=== PATIENT | male | born 2000 | race Caucasian/White ===

== ENCOUNTER 2018-05-08 17:02 | Emergency (ER) | payer BC ==
[2018-05-08] MEDS ORDERED: LORazepam 2 MG/ML INJ NASAL ONE (17:16)
--- NOTE | 2018-05-08 17:20 | EDPHY ---
H & P Time Seen by Provider: 05/08/18 17:06 HPI/ROS: CHIEF COMPLAINT: "I am just having a real hard time right now" HISTORY OF PRESENT ILLNESS: 17-year-old male history of depression, anxiety, arrives via ambulance. He is not sure who called the ambulance. States that he was crying in the shower in the dormitory when EMS arrived. States that he is not experiencing suicidal homicidal ideation but is is " having a real hard time and really sad right now". History of Prozac with no recent changes in dosage. No hallucination. No alcohol or drug use. No physical trauma. PRIMARY CARE PROVIDER: REVIEW OF SYSTEMS: 10 systems reviewed and negative with the exception of the elements mentioned in the history of present illness PAST MEDICAL & SURGICAL HISTORY: Anxiety. Depression. SOCIAL HISTORY: Student. PHYSICAL EXAM (Prior to examination, patient consented to physical exam, hands were washed and my usual and customary physical exam procedures followed) 1) GENERAL: Well-developed, well-nourished, alert and oriented. Crying. Hyperventilating. 2) HEAD: Normocephalic, atraumatic 3) HEENT: Pupils equal, round, reactive to light bilaterally. Sclera anicteric. 4) NECK: Full range of motion, no meningeal signs. 5) LUNGS: Clear auscultation bilaterally, no wheezes, no rhonchi, no retractions. 6) HEART: Regular rate and rhythm, no murmur, no heave, no gallop. 7) ABDOMEN: No guarding, no rebound, no focal tenderness, negative McBurney's, negative Angela's, negative Rovsing's, negative peritoneal sign, 8) MUSCULOSKELETAL: Carpal pedal spasm noted. Moving all extremities, no focal areas of tenderness, no obvious trauma. No peripheral edema or discoloration. 9) BACK: No CVA tenderness, no midline vertebral tenderness, no fluctuance, no step-off, no obvious trauma, no visual or palpable abnormality. 10) SKIN: No rash, no petechiae. 11) Psychiatric: Patient is oriented X 3, there is no agitation. DIFFERENTIAL DIAGNOSIS: In no particular order including but not limited to depression, anxiety, panic attack. Smoking Status: Never smoked Constitutional: Initial Vital Signs Temperature (C) 36.3 C 05/08/18 17:10 Heart Rate 82 05/08/18 17:10 Respiratory Rate 18 05/08/18 17:10 Blood Pressure 121/72 H 05/08/18 17:10 O2 Sat (%) 98 05/08/18 17:10 O2 Delivery Mode Room Air Allergies/Adverse Reactions: No Known Allergies Allergy (Unverified 05/08/18 17:13) Home Medications: Medication Instructions Recorded Prozac 20 MG (*) 05/08/18 MDM/Departure - MDM Medications Given: Discontinued Medications Lorazepam (Ativan Injection) 1 mg NASAL EDNOW ONE Stop: 05/08/18 17:17 Last Admin: 05/08/18 17:27 Dose: 1 mg Lorazepam (Ativan 1 Mg Prepack#4) 1 btl TAKEHOME EDNOW ONE Stop: 05/08/18 18:23 Last Admin: 05/08/18 19:02 Dose: 1 btl ED Course/Re-evaluation: 6:19 p.m.: Re-evaluation after intranasal Ativan 1 mg. He is smiling, states that he is feeling "totally better". Does state this time that he had passing thoughts of suicidality earlier today when he was experiencing acute anxiety however now that he is feeling improvement he denies suicidal or homicidal ideation. He does relate to me numerous school related stressors. He would like to be discharged. He has been given my usual customary psychiatric precautions instructions. I explained to the patient should she develop thoughts of hurting himself needs to call 911 immediately. He consents to this. He will be discharged with a prepack of Ativan. Recommend rest, avoiding drugs and alcohol. He feels comfortable being discharged. Care of patient under supervision of secondary supervising physician Dr Pulido . - Depart Disposition: Home, Routine, Self-Care Clinical Impression: Anxiety Condition: Good Instructions: Lorazepam (By mouth), Anxiety (ED) Additional Instructions: Return to the ER immediately if you experience thoughts of hurting yourself, thoughts of hurting other people, thoughts of killing other people or killing yourself. Referrals: [facility] JANNETH Costello. [Clinic] - 05/11/18
[2018-05-08] MEDS ORDERED: LORAZEPAM 1 MG PREPACK#4 BTL TAKEHOME ONE (18:22)
[2018-05-08 19:04] VITALS: BP 125/84
--- NOTE | 2018-05-08 21:02 | ASMTTCLDSP ---
TLC Discharge Disposition Disposition: Answers: Discharge Disposition Notes: Notes: In consultation with [facility] ED physician, Dr Tess MD, it was concurred that pt does not appear to meet 27-65 criteria requiring psychiatric hospitalization as pt does not appear to be an imminent risk of harm to self, others, or gravely disabled due to a mental illness condition. Discharge Concerns/Recommendations: Notes: 6:19 p.m.: Re-evaluation after intranasal Ativan 1 mg. He is smiling, states that he is feeling "totally better". Does state this time that he had passing thoughts of suicidality earlier today when he was experiencing acute anxiety however now that he is feeling improvement he denies suicidal or homicidal ideation. He does relate to me numerous school related stressors. He would like to be discharged. He has been given my usual customary psychiatric precautions instructions. I explained to the patient should she develop thoughts of hurting himself needs to call 911 immediately. He consents to this. He will be discharged with a prepack of Ativan. Recommend rest, avoiding drugs and alcohol. He feels comfortable being discharged. Care of patient under supervision of secondary supervising physician Dr Pulido . [facility] interventions detailed below: Using a Rogerian Approach, shared Mindfulness Bases Stress Reduction techniques to help the pt learn how to monitor and control his breathing during an anxiety attack. Shared various academic coping strategies for academics under a heavy stress and work load. PT's parents were present in the room per pt's consent. Counseling resources were given and pt was educated about anti-anxiety meds, the risks of abuse of benzo's, and the risk of street benzos. Date Signed: 05/08/2018 07:57 PM Electronically Signed By:Didier Barrera
--- NOTE | 2018-05-08 21:02 | ASMTTLCEVL ---
TLC Evaluation - Basic Information Evaluation Start Date and 05/08/2018 05:00 PM Time Hospital Status Answers: Voluntary Patient statement Notes: "I had an anxiety attack so bad that my throat closed." . Narrative Notes: PT is a17 YO caucasion, male, never no children, [employer] fresh[employer], presented to the ER via EMS after being found in the shower feeling fient. Per pt he had an anxiety attack. (after vitals were taken Pt was given ativan via inhaler in the ER) Per pt (confirmed by parents) he has an anxiety issue where his throat closes up this was diagnosed when he was in high school as an anxiety disorder with Vocal Cord disturbance. 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 School work and dorm life is overwhelming to him. He decided to take a shower. In the shower he began to feel his throat closing; he felt faint so he guided himself to the ground. Soon after that someone in the dorm found him and called 911. 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 No plan Prior hospitalizations Notes: No prior Hospitalizations Treatment Responses Notes: Recently prescribed prosac, and anxiety attacks have become for frequent. History of violence Notes: None reported Therapist: None Psychiatrist: Arjun Jimenez MD Medications (name, dosage, route, freq uency) Notes: Prosac 20mg Allergies/Reaction Notes: Unknown Sleep Notes: Not well at all 2-3 hours a night Appetite Notes: Pt reported that has to prioritize eating or he would otherwise forget. Medical/Surgical history Notes: None Substance use history (frequency, intensity, his tory, duration) Notes: Pt reported THC 203 week, and ETOH 1 time per month (1 drink) Family composition Notes: Mom, Dad, and younger brother. Need for family Answers: Yes participation in patient's care Family psychiatric/substance abuse history Notes: Mom has a hx of anxiety and maybe depression Developmental history Notes: Pt denied ADDand ADHD, pt denied any abuse or trauma, pt denied concussions and TBIS' No other developmental issues were reported either. Abuse concerns Answers: None Marital status/children Notes: Unmarried, no children Living situation Notes: Dorms Sexual history/orientation Notes: Castillo, not active Peer support/family strengths Notes: PT reports he has great friends, one named joaquim is his favorite. 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 Work history Notes: Pt has not worked. Notes: None Legal Notes: No legal issues reported. Judaism/Spiritual Notes: Pt reports he is an atheist Leisure Notes: Pt likes to write plays and music, watch tv, play the piano, sing, and play the guitar. Collateral Notes: Collateral data obtained from pt's parents who arrived in the ED after being called per PT's request. Patient's strengths Answers: Artistic/Creative/Musical (Please select at least TWO strengths): Athletic Funny/Using Humor Good Friend to Others Honest Insightful Intelligent [place] Motivated for Treatment Responsible/Dependable Supportive/Compassionate Supportive Family Willingness TLC Evaluation - Mental Status Exam Appearance: Answers: Appropriate Clean Well Groomed Neat Eye Contact: Answers: Good/Direct Mood: Answers: Elevated Affect: Answers: Appropriate Anxious Nervous Behavior: Answers: Appropriate Cooperative Anxious Speech: Answers: Relevant Logical Clear Coherent Thought Process: Answers: Organized Oriented Alert Goal Oriented Insight: Answers: Good Judgement: Answers: Good Anxiety Signs/Symptoms Answers: Panic Attacks Hallucinations: Answers: None Pt reported to have Answers: No suicidal/self-injuring ideation/behavior? Pt reported to be making Answers: No suicidal/self-injuring threats? Pt reported to have Answers: No aggression/assault ideation/behavior? Pt reported to be making Answers: No aggression/assault threats? Pt exhibits inability to Answers: No care for self/grave disability? Ideation/behavior is Answers: No chronic? Patient has a specific Answers: No plan? Pt has access to means to Answers: No execute the plan? Ideation involves Answers: No serious/lethal intent? Ideation has Answers: No delusional/hallucinatory content? History of Answers: No suicidal/self-injuring ideation, behavior, or threats? History of Answers: No aggressive/assaultive ideation, behavior, or threats? History of serious Answers: No physical harm to self/others while in treatment setting? TLC Evaluation - Suicide/Homicide Risk Suicide Risk Factors: Answers: < 20 or > 40 Years of Age Anxiety/Panic, Severe Single Current Suicidal Answers: No Ideation? Current Suicidal Ideation Answers: No in the Past 48 Hours? Current Suicidal Ideation Answers: No in the Past Month? Current Suicidal Answers: No Ideation, Worst Ever? Suicide Internal Answers: Frustration Tolerance Protective Factors: Abhay with Stress Suicide External Answers: Positive Therapeutic Protective Factors: Relationships Social Support Ranking of patient's Answers: Low suicidal risk: Ranking of patient's Answers: Low homicidal risk: TLC Evaluation - Wrap-up AXIS I Diagnosis (include DSM-V and ICD-10 codes), must also be entered in [employer], which is the source of truth. Notes: Unspecified Anxiety Disorder 300.00 (F41.9) Pt denied any SI or HI. Evaluation End Date and 05/08/2018 07:30 PM Time (HH:MM): Date Signed: 05/08/2018 07:50 PM Electronically Signed By:Didier Barrera
== END 2018-05-08 19:25 | disposition home or self-care (01) ==
PROC: GZ11ZZZ Psychological Tests, Personality and Behavioral (ICD-10-PCS; principal; 2018-05-08)
DX: F41.9 Anxiety disorder, unspecified (principal); F32.9 Major depressive disorder, single episode, unspecified
CPT/HCPCS: J2060

== ENCOUNTER 2018-05-27 10:26 | Emergency (ER) | payer BC ==
--- NOTE | 2018-05-27 11:09 | EDPHY ---
H & P Stated Complaint: Prod cough c weakness x1D, denies N/V/D. Time Seen by Provider: 05/27/18 11:06 HPI/ROS: CHIEF COMPLAINT: flu like symptoms x1 day HISTORY OF PRESENT ILLNESS: 17-year-old immunocompetent male with up-to-date seasonal influenza vaccination complaining of sudden onset flu-like symptoms yesterday afternoon, complaining of sore throat, myalgia, fever, nonproductive cough. He denies: Headache, nausea, vomiting, abdominal pain, rash, muscular flaccidity or weakness. REVIEW OF SYSTEMS: 10 systems reviewed and negative with the exception of the elements mentioned in the history of present illness PAST MEDICAL & SURGICAL HISTORY: up-to-date with influenza vaccination SOCIAL HISTORY: nonsmoker PHYSICAL EXAM (Prior to examination, patient consented to physical exam, hands were washed and my usual and customary physical exam procedures followed) 1) GENERAL: Well-developed, well-nourished, alert and oriented. Appears nontoxic. 2) HEAD: Normocephalic, atraumatic 3) HEENT: Pupils equal, round, reactive to light bilaterally. Sclera anicteric. Nasopharynx, oropharynx, clear, no lesions. No tonsillar enlargement or exudate.Moist Mucous membranes. Ears bilaterally with normal tympanic membranes. No tonsillar enlargement or exudate 4) NECK: Full range of motion, no meningeal signs. 5) LUNGS: equivocal bibasilar rales. No retractions or accessory muscle use. 6) HEART: Regular rate and rhythm, no murmur, no heave, no gallop. 7) ABDOMEN: No guarding, no rebound, no focal tenderness, negative McBurney's, negative Angela's, negative Rovsing's, negative peritoneal sign, 8) MUSCULOSKELETAL: Moving all extremities, no focal areas of tenderness, no obvious trauma. No peripheral edema or discoloration. 9) BACK: No CVA tenderness, no midline vertebral tenderness, no fluctuance, no step-off, no obvious trauma, no visual or palpable abnormality. 10) SKIN: No rash, no petechiae. 11) Psychiatric: Patient is oriented X 3, there is no agitation. DIFFERENTIAL DIAGNOSIS: In no particular order including but not limited to influenza, pneumonia, bronchitis - Personal History Current Tetanus/Diphtheria Vaccine: Yes - Medical/Surgical History Hx Asthma: No Hx Chronic Respiratory Disease: No Hx Diabetes: No Hx Cardiac Disease: No Hx Renal Disease: No Hx Cirrhosis: No Hx Alcoholism: No Other PMH: anxiety/depression - Social History Smoking Status: Never smoked Constitutional: Initial Vital Signs Temperature (C) 36.3 C 05/27/18 10:32 Heart Rate 66 05/27/18 10:32 Respiratory Rate 18 05/27/18 10:32 Blood Pressure 110/74 05/27/18 10:32 O2 Sat (%) 92 05/27/18 10:32 O2 Delivery Mode Room Air Allergies/Adverse Reactions: No Known Allergies Allergy (Verified 05/27/18 10:32) Home Medications: Medication Instructions Recorded Prozac 20 MG (*) 05/08/18 Albuterol [Proventil Inhaler HFA 1 - 2 puffs IH Q4PRN PRN #1 mdi 05/27/18 (*)] Azithromycin [Zithromax] 500 mg PO DAILY #1 tablet 05/27/18 Benzonatate [Tessalon Pearles (RX)] 200 mg PO TID PRN #15 cap 05/27/18 Medical Decision Making - Diagnostics Imaging Results: Imaging Impressions Chest X-Ray 05/27/18 11:21 Impression: Prominence of perihilar interstitial markings and peribronchial cuffing. Findings are nonspecific but can be seen with bronchitis, reactive airway disease, or viral process. Images reviewed by myself ED Course/Re-evaluation: 12:40 p.m.: Re-evaluation, discussed negative influenza testing. Discussed chest x-ray showed no focal infiltrate. Patient is maintain normal saturations. Think he can be discharged. Do not anticipate hospitalization at this time. Will be discharged with medications, school note. Feels comfortable being discharged with my usual and customary respiratory precautions and instructions. Care of patient under supervision of secondary supervising physician Dr Pulido . - Data Points Laboratory Results: 05/27/18 11:24 Nasal Influenza A PCR NEGATIVE FOR FLU A (NEGATIVE) Nasal Influenza B PCR NEGATIVE FOR FLU B (NEGATIVE) Medications Given: Discontinued Medications Albuterol/Ipratropium (Duoneb) 3 ml IH EDNOW ONE Stop: 05/27/18 13:03 Last Admin: 05/27/18 13:16 Dose: 3 ml Departure - Departure Disposition: Home, Routine, Self-Care Clinical Impression: Acute bronchitis Qualifiers: Bronchitis organism: unspecified organism Qualified Code(s): J20.9 - Acute bronchitis, unspecified Condition: Good Instructions: Acute Bronchitis (ED) Additional Instructions: Return to the emergency department immediately for change in breathing habits, change in voice, change in swallowing habits, change in mental status, or any other symptoms that concern you. Referrals: [facility] [Clinic] - 1 day without fail Stand Alone Forms: School Excuse Prescriptions: Albuterol [Proventil Inhaler HFA (*)] 1 - 2 puffs IH Q4PRN PRN #1 mdi PRN Reason: Cough, Moderate Azithromycin [Zithromax] 500 mg PO DAILY #1 tablet Benzonatate [Tessalon Pearles (RX)] 200 mg PO TID PRN #15 cap PRN Reason: Cough, Moderate
[2018-05-27] MEDS ORDERED: IPRATROPIUM/ALBUTEROL 3 ML DEYVIAL IH ONE (13:02)
[2018-05-27 13:42] VITALS: BP 132/74
== END 2018-05-27 13:41 | disposition home or self-care (01) ==
DX: J20.8 Acute bronchitis due to other specified organisms (principal)